=== PATIENT | female | born 1995 | race Caucasian/White ===

== ENCOUNTER → 2022-06-30 | Outpatient (CLI) | payer OTHER ==
[~2022-06-30] MED LIST: ACETAMINOPHEN500 MG PO; BIRTH CONTROL PILL; Bactrim Ds Tab1 EACH PO; Keflex500 MG PO; Naprosyn500 MG PO; PRED20 PO; Veetids 500500 MG PO
[2022-06-30 17:48] LABS: BASOPHILS ABSOLUTE AUTO 0.03 K/mm3 (0.00-0.23); BASOPHILS PERCENT AUTO 0 % (0-2); EOSINOPHILS ABSOLUTE AUTO 0.13 K/mm3 (0.00-0.68); EOSINOPHILS PERCENT AUTO 1 % (0-6); Hematocrit 33.7 % (33.0-51.0); IMMATURE GRAN ABSOLUTE AUTO 0.12 K/mm3 (0.00-0.10); IMMATURE GRAN PERCENT AUTO 1 % (0-1); LYMPHOCYTES ABSOLUTE AUTO 1.19 K/mm3 (0.84-5.20); LYMPHOCYTES PERCENT AUTO 13 % (21-46); MONOCYTES ABSOLUTE AUTO 0.31 K/mm3 (0.16-1.47); MONOCYTES PERCENT AUTO 3 % (4-13); Mean Corpuscular HGB 28.2 pg (26.0-34.0); Mean Corpuscular HGB Conc 32.6 g/dL (31.5-36.5); Mean Corpuscular Volume 86 fL (80-100); Mean Platelet Volume 9.6 fL (9.1-12.4); NEUTROPHILS ABSOLUTE AUTO 7.44 K/mm3 (1.96-9.15); NEUTROPHILS PERCENT AUTO 81 % (41-73); Platelet Count 266 K/mm3 (150-400); RDW Coefficient Variation 14.9 % (11.7-14.2); RDW Standard Deviation 47.4 fL (35.1-46.3); White Blood Cell Count 9.22 K/mm3 (4.00-11.30)
== END | disposition home or self-care (01) ==
LOC: LAB SHORT 15:37 → LAB 15:37
PROVIDERS: Obstetrics & Gynecology
DX: O09.892 Supervision of other high risk pregnancies, second trimester (principal)
CPT/HCPCS: 82950; 85025

== ENCOUNTER 2022-11-02 19:02 | Inpatient (IN) | payer OTHER ==
[~2022-11-02] VITALS: Ht 170.2 cm; Wt 143.2 kg
[2022-11-02] MEDS ORDERED: ASPI81CH PO (20:43)
[2022-11-02] MEDS ORDERED: METF500 PO ×2 (20:44)
[2022-11-02 20:51] LABS: BASOPHILS ABSOLUTE AUTO 0.01 K/mm3 (0.00-0.23); BASOPHILS PERCENT AUTO 0 % (0-2); EOSINOPHILS ABSOLUTE AUTO 0.03 K/mm3 (0.00-0.68); EOSINOPHILS PERCENT AUTO 0 % (0-6); Hematocrit 32.8 % (33.0-51.0); Hemoglobin 10.7 g/dL (11.5-16.0); IMMATURE GRAN ABSOLUTE AUTO 0.06 K/mm3 (0.00-0.10); IMMATURE GRAN PERCENT AUTO 1 % (0-1); LYMPHOCYTES PERCENT AUTO 13 % (21-46); MONOCYTES ABSOLUTE AUTO 0.59 K/mm3 (0.16-1.47); MONOCYTES PERCENT AUTO 6 % (4-13); Mean Corpuscular HGB 26.1 pg (26.0-34.0); Mean Corpuscular HGB Conc 32.6 g/dL (31.5-36.5); Mean Corpuscular Volume 80 fL (80-100); Mean Platelet Volume 9.9 fL (9.1-12.4); NEUTROPHILS ABSOLUTE AUTO 7.72 K/mm3 (1.96-9.15); NEUTROPHILS PERCENT AUTO 80 % (41-73); Platelet Count 307 K/mm3 (150-400); RDW Coefficient Variation 15.5 % (11.7-14.2); RDW Standard Deviation 44.6 fL (35.1-46.3); White Blood Cell Count 9.71 K/mm3 (4.00-11.30)
[2022-11-02 20:52] VITALS: BP 119/67
[2022-11-02 21:50] VITALS: BP 123/58
[2022-11-03] VITALS (29 sets, daily range): BP systolic 90–146; BP diastolic 52–93
[2022-11-03 22:50] LABS: PCO2 Cord - Arterial 46.5 mmHg (40-50); pH Cord - Arterial 7.33 (7.28-7.35)
[2022-11-03 22:51] LABS: PO2 Cord - Arterial < 16 mmHg (16-20)
[2022-11-03 22:53] LABS: PCO2 Cord - Venous 33.1 mmHg (40-50); PO2 Cord - Venous 25.2 mmHg (28-32); pH Umbilical Cord - Venous 7.41 (7.26-7.35)
[2022-11-04] VITALS (12 sets, daily range): BP systolic 121–167; BP diastolic 55–80
[2022-11-04 05:47] LABS: BASOPHILS ABSOLUTE AUTO 0.03 K/mm3 (0.00-0.23); BASOPHILS PERCENT AUTO 0 % (0-2); EOSINOPHILS PERCENT AUTO 0 % (0-6); Hematocrit 29.8 % (33.0-51.0); Hemoglobin 9.5 g/dL (11.5-16.0); IMMATURE GRAN ABSOLUTE AUTO 0.11 K/mm3 (0.00-0.10); IMMATURE GRAN PERCENT AUTO 1 % (0-1); LYMPHOCYTES ABSOLUTE AUTO 1.14 K/mm3 (0.84-5.20); LYMPHOCYTES PERCENT AUTO 6 % (21-46); MONOCYTES ABSOLUTE AUTO 0.75 K/mm3 (0.16-1.47); MONOCYTES PERCENT AUTO 4 % (4-13); Mean Corpuscular HGB 25.9 pg (26.0-34.0); Mean Corpuscular HGB Conc 31.9 g/dL (31.5-36.5); Mean Corpuscular Volume 81 fL (80-100); Mean Platelet Volume 9.7 fL (9.1-12.4); NEUTROPHILS ABSOLUTE AUTO 16.04 K/mm3 (1.96-9.15); NEUTROPHILS PERCENT AUTO 89 % (41-73); Platelet Count 279 K/mm3 (150-400); RDW Coefficient Variation 15.8 % (11.7-14.2); RDW Standard Deviation 46.5 fL (35.1-46.3); Red Blood Cell Count 3.67 M/mm3 (3.80-5.20); White Blood Cell Count 18.07 K/mm3 (4.00-11.30)
[2022-11-05 00:11] VITALS: BP 113/63
[2022-11-05 05:37] VITALS: BP 124/58
[2022-11-05 07:43] VITALS: BP 117/54
--- NOTE | 2022-11-05 08:46 | NUR ---
11/05/22 0846 Maria Eugenia Liang VERIFICATIONS: EDIT CHART.
[2022-11-05 11:33] VITALS: BP 132/69
[2022-11-05] MEDS ORDERED: IBUP800 PO (11:37)
[2022-11-05] MEDS ORDERED: Percocet 5-3251 EACH PO (11:38)
[2022-11-05] MEDS ORDERED: DOCU100 PO (11:38)
[2022-11-05 14:30] VITALS: BP 121/60
== END 2022-11-05 15:45 | disposition home or self-care (01) | DRG 787 ==
LOC: OBS 19:02 → BC 19:03 → OBS 19:08 → BC 19:09
PROVIDERS: Family Medicine; ADMIT Registered Nurse Community Health
PROC: 4A033R1 Measurement of Arterial Saturation, Peripheral, Percutaneous Approach (ICD-10-PCS; 2022-11-02)
PROC: 10D00Z1 Extraction of Products of Conception, Low, Open Approach (ICD-10-PCS; principal; 2022-11-03 21:30)
DX: O24.425 Gestational diabetes mellitus in childbirth, controlled by oral hypoglycemic drugs (principal); O10.92 Unspecified pre-existing hypertension complicating childbirth; Z3A.39 39 weeks gestation of pregnancy; Z37.0 Single live birth; O99.214 Obesity complicating childbirth; O99.824 Streptococcus B carrier state complicating childbirth; O32.4XX0 Maternal care for high head at term, not applicable or unspecified; O99.62 Diseases of the digestive system complicating childbirth; K66.0 Peritoneal adhesions (postprocedural) (postinfection); Z79.82 Long term (current) use of aspirin; Z79.84 Long term (current) use of oral hypoglycemic drugs; Z79.899 Other long term (current) drug therapy
CPT/HCPCS: 36415; 51702; 82803; 82947; 85025; 85460; 86850; 86900; 86901; 86923; 96372; A9270; J0290; J0456; J0690; J1885; J2210; J2371; J2405; J2590; J2791; J3010; J7050; J7120